=== PATIENT | female | born 1945 | race Caucasian/White ===

== ENCOUNTER 2016-10-12 16:00 | Outpatient (RCR) | payer BC ==
[~2016-10-12 16:00] MED LIST: ANTIHYPERTENSIVE; ASPIRIN 81M81 MG/TA2 PO; HCTZ 25MG TAB25 MG PO; LEVAQUIN 5500 MG/TA1 PO; MACROBID 1100 MG/CAP PO
== END 2016-11-08 16:52 | disposition home or self-care (01) ==
LOC: WSPT 16:00
DX: R53.1 Weakness (principal); M25.311 Other instability, right shoulder; Z91.81 History of falling
CPT/HCPCS: G8978-GP; G8979-GP; G8980-GP

== ENCOUNTER → 2017-11-03 | Outpatient (CLI) | payer BC | LOC: MC.RAD 10:40 | DX: Z12.31 Encounter for screening mammogram for malignant neoplasm of breast (principal) ==

== ENCOUNTER → 2018-07-24 | Outpatient (CLI) | payer MEDICARE, BC | LOC: COL.RAD 10:28 | DX: R59.0 Localized enlarged lymph nodes (principal) ==

== ENCOUNTER → 2018-07-31 | Outpatient (CLI) | payer MEDICARE, BC ==
[~2018-07-31] VITALS: Ht 167.6 cm; Wt 80.7 kg
[~2018-07-31] MED LIST changes: +COZAAR 25MG25 MG/TAB PO; +PLAVIX 75MG TAB75 MG PO; +PRAVACHOL 20MG20 MG PO; +PRILOSEC 20MG20 MG PO
[2018-07-31 12:31] VITALS: BP 148/78; PULSE 65
[2018-07-31 13:47] VITALS: BP 149/80; PULSE 53
--- NOTE | 2018-07-31 14:10 | NUR ---
PT LEAVES AMBULATORY HOLDING ON TO PER HER REQUEST. GAIT STEADY, DENIES PAIN OR LIGHTHEADEDNESS. NURSE WAITED WITH PT UNTIL DROVE TRUCK TO THE DOORS. PT ASSISTE INSIDE TRUCK
== END ==
LOC: COL.RAD 12:00
DX: R59.0 Localized enlarged lymph nodes (principal)

== ENCOUNTER → 2018-11-08 | Outpatient (CLI) | payer MEDICARE, BC | LOC: MC.RAD 07:56 | DX: Z12.31 Encounter for screening mammogram for malignant neoplasm of breast (principal) ==

== ENCOUNTER → 2018-11-14 | Outpatient (CLI) | payer MEDICARE, BC | LOC: MC.RAD 13:30 | DX: N64.89 Other specified disorders of breast (principal) | CPT/HCPCS: G0279 ==

== ENCOUNTER 2019-06-10 15:15 | Outpatient (RCR) | payer MEDICARE, BC | END 2019-06-27 13:51 | disposition home or self-care (01) | LOC: WSPT 15:15 | DX: M75.81 Other shoulder lesions, right shoulder (principal) | CPT/HCPCS: G0283-GP ==

== ENCOUNTER 2020-04-14 15:45 | Outpatient (RCR) | payer MEDICARE, BC | END 2020-06-03 | disposition home or self-care (01) | LOC: WSPT | DX: M25.571 Pain in right ankle and joints of right foot (principal) ==

== ENCOUNTER → 2020-06-23 | Outpatient (CLI) | payer MEDICARE, BC | LOC: MC.RAD 13:28 | DX: Z12.31 Encounter for screening mammogram for malignant neoplasm of breast (principal); N63.10 Unspecified lump in the right breast, unspecified quadrant ==

== ENCOUNTER → 2020-07-07 | Outpatient (CLI) | payer MEDICARE, BC | LOC: MC.RAD 13:41 | DX: N60.11 Diffuse cystic mastopathy of right breast (principal) ==

== ENCOUNTER → 2021-07-20 | Outpatient (CLI) | payer MEDICARE, BC | LOC: MC.RAD 14:07 | DX: Z12.31 Encounter for screening mammogram for malignant neoplasm of breast (principal) ==

== ENCOUNTER → 2022-01-19 | Outpatient (CLI) | payer MEDICARE, BC | LOC: MC.RAD 12:40 | DX: N63.10 Unspecified lump in the right breast, unspecified quadrant (principal); N64.4 Mastodynia ==

== ENCOUNTER → 2022-08-31 | Outpatient (CLI) | payer MEDICARE, BC | LOC: MC.RAD 08:15 | DX: Z12.31 Encounter for screening mammogram for malignant neoplasm of breast (principal) ==

== ENCOUNTER 2024-04-27 10:21 | Emergency (ER) | payer MEDICARE, BC ==
[~2024-04-27] VITALS: Ht 167.6 cm; Wt 81.8 kg
[2024-04-27 10:28] VITALS: TEMP 100.2
[2024-04-27 10:42] LABS: BASO # 0.1 K/mm3 (0.0-0.2); BASO % 0.9 % (0.0-2.0); EOS # 0.2 K/mm3 (0.0-0.7); EOS % 2.1 % (0.0-4.0); GRAN # 7.6 K/mm3 (1.4-6.5); GRAN % 73.6 % (42.2-75.2); HEMATOCRIT 44.3 % (37.0-47.0); HEMOGLOBIN 14.9 g/dl (12.5-16.0); LYMPH # 1.7 K/mm3 (1.2-3.4); LYMPH % 16.8 % (20.0-51.0); MEAN CELL VOLUME 90 fl (80.0-100.0); MEAN CORPUSCULAR HEMOGLOBIN 30 pg (27-31); MEAN CORPUSCULAR HGB CONC 34 g/dl (33.0-37.0); MEAN PLATELET VOLUME 9.7 fl (7.4-10.4); MONO # 0.7 K/mm3 (0.1-0.6); MONO % 6.3 % (1.7-9.3); PLATELET COUNT 265 K/mm3 (130-400); RED BLOOD COUNT 4.93 M/mm3 (4.10-5.30); REDCELL DISTRIBUTION WIDTH-CV 13.2 % (11.5-14.5)
[2024-04-27 11:00] LABS: ALBUMIN 3.7 g/dL (3.4-4.8); BILIRUBIN,TOTAL 0.6 mg/dL (0.2-1.2); CALCIUM 9.6 mg/dL (8.4-10.2); CREATININE, serum 0.88 mg/dL (0.57-1.11)
[2024-04-27 11:06] LABS: TROPONIN-I 0.012 ng/mL (0.00-0.033)
[2024-04-27 13:13] VITALS: BP 155/69; PULSE 65
== END 2024-04-27 13:16 | disposition home or self-care (01) ==
LOC: COL.ER 10:21
PROVIDERS: Physician Assistant
DX: R06.02 Shortness of breath (principal); Z79.01 Long term (current) use of anticoagulants